=== PATIENT | male | born 1990 | race Caucasian/White ===

== ENCOUNTER → 2019-10-03 13:57 | Outpatient (CLI) | payer BC, SELFPAY ==
[2019-10-04 13:51] LABS: Covid-19 Nasal PCR Sendout Lex Not Detected
== END ==
PROVIDERS: PCP Emergency Medicine; Visit Provider Nurse Practitioner Family
DX: Z03.818 Encounter for observation for suspected exposure to other biological agents ruled out (principal)
CPT/HCPCS: U0004

== ENCOUNTER 2020-04-23 15:45 | Emergency (ER) | payer OTHER, SELFPAY ==
[2020-04-23 16:07] VITALS: BP 129/74; PULSE 113; RESP 14; TEMP 38.8; O2SAT 96; BMI 26.5
--- NOTE | 2020-04-23 16:15 | HMH.EDUTC ---
[facility] [place] Disposition Clinical Impression: Strep throat Disposition: Home, Self-Care Condition on Discharge: Good Instructions: Strep Throat (Alternative Therapy), Strep Throat, DI for Strep Throat Additional Instructions: *Monitor Temp, Over the counter Motrin or Tylenol as directed/as needed Tylenol every 4 hours and Motrin every 6 hours (as long as your family doctor has told you that you can take it) for fever or pain. and straight to ER if unable to lower temp less than 101.0 after medication given *Warm salt water gargles may help to soothe the throat *Throat Lozenges *Warm fluids like tea with honey may help to soothe the throat *Sleep elevated *Humidifier/Vaporizer *If you did not take Penicillin shot or was unable to, start taking antibiotic immediately and make sure that you take it for the FULL length of time although you should start to feel better in 24-48 hours *change toothbrush and toothpaste 24-48 hours after starting to take antibiotics so you do not reinfect yourself Monitor Temp. Tylenol and/or Ibuprofen as needed. ER if fever is no less than 101 despite alternating Tylenol and Ibuprofen * Encourage fluids, water, Gatorade, powerade, pedialyte if infant/toddler/or child *Cold fluids, popsicles and ice cream may feel good on his throat Follow up IMMEDIATELY for new or worsening symptoms or no Noticeable improvement over the next 48-72 hours. 911 for difficulty breathing or swallowing Prescriptions: Amoxicillin/Potassium Clav [Augmentin 875-125 Tablet] 1 tab PO Q12H 10 Days #20 tab Transmission Status: Received by [id number] Referrals: Huey Marroquin MD [Primary Care Provider] - Forms: Work/School Release Time of Disposition: 18:24 Medical Decision Making - Rashad Inquiry Pt receiving controlled substance: No Rashad was queried for this patient: No Vital Signs: 04/23/20 16:07 04/23/20 16:46 Temperature 101.9 F H 101 F H Temperature Source Oral Tympanic Pulse Rate 107 H Pulse Rate [Right] 113 H Respiratory Rate 14 16 Blood Pressure 122/76 Blood Pressure [Right Arm] 129/74 Blood Pressure Mean [Right Arm] 92 Blood Pressure Source [Right Arm] Automatic Cuff Blood Pressure Position [Right Arm] Sitting 02 Sat by Pulse Oximetry 96 Oxygen Delivery Method Room Air - Lab Data Lab results reviewed: Yes: I reviewed the patient's lab results. Orders (Tests/Meds): ED MEDICATIONS Discontinued Medications Generic Name Dose Route Start Last Admin Trade Name Digna PRN Reason Stop Dose Admin Ceftriaxone Sodium 1 gm 04/23/20 16:19 04/23/20 16:25 Ceftriaxone 1gm Vial IM 04/23/20 16:20 1 gm ONCE ONE Administration Protocol Ibuprofen 800 mg 04/23/20 16:37 04/23/20 16:37 Ibuprofen 400 Mg Tablet PO 04/23/20 16:38 800 mg ONCE ONE Administration Lidocaine HCl 0 ml 04/23/20 16:19 04/23/20 16:25 Lidocaine 1% 5ml Pf Vial IM 04/23/20 16:20 2 ml ONCE ONE Administration Methylprednisolone Sodium Succinate 125 mg 04/23/20 16:19 04/23/20 16:25 Methylprednisolone Sod Succ 125mg Vial IM 04/23/20 16:20 125 mg ONCE ONE Administration Medical Decision Narrative: Medication discussed with pharmacy and agreed, due to symptoms and no improvement on amoxicillin will give injection of Rochephin and change medication to Augmentin [facility] [place] HPI - General Stated complaint: sore throat, VELASCO, diarrhea Time Seen by Provider: 04/23/20 16:15 Mode of Arrival: Ambulatory Source of Information: Patient Limitations: No Limitations Description of Symptoms (Recalled from Triage Doc. by RN): PT HAS HAD A SEVERELY SORE THROAT AND FEVER ONGOING FOR FOUR DAYS. HE WAS TESTED FOR STREP AND COVID AT [facility] AND BOTH WERE NEGATIVE. PT IS HOARSE. PT CURRENTLY FEBRILE AT 101.9 HEENT Symptoms (Recalled from RN notes): Yes (SORE THROAT) Resp Symptoms (Recalled from RN notes): No Skin Symptoms (Recalled from RN notes): No MS Symptoms (Recalled from RN notes): No Functi
[2020-04-23 16:46] VITALS: BP 122/76; PULSE 107; RESP 16; TEMP 38.3
[2020-04-23 19:38] LABS: UTC Strep Screen (Rapid) Positive (Negative)
== END 2020-04-23 16:51 | disposition home or self-care (01) ==
PROVIDERS: Emergency Provider Nurse Practitioner; PCP Emergency Medicine
DX: J02.0 Streptococcal pharyngitis (principal); F17.290 Nicotine dependence, other tobacco product, uncomplicated
CPT/HCPCS: 87880; 96372; 99202; G0463

== ENCOUNTER 2021-06-19 10:24 | Emergency (ER) | payer OTHER, SELFPAY ==
[2021-06-19 10:53] VITALS: BP 115/57; PULSE 79; RESP 18; TEMP 37.2; O2SAT 98; BMI 27.8
[2021-06-19 11:00] LABS: UTC Influenza A Antigen Negative (Negative)
[2021-06-19 11:01] LABS: UTC Influenza B Antigen Negative (Negative)
--- NOTE | 2021-06-19 11:02 | HMH.EDUTC ---
[facility] [place] Disposition Clinical Impression: Viral syndrome Pharyngitis Qualifiers: Pharyngitis/tonsillitis etiology: unspecified etiology Qualified Code(s): J02.9 - Acute pharyngitis, unspecified Disposition: Home, Self-Care Condition on Discharge: Good Instructions: DI for Pharyngitis/Tonsillopharyngitis -- Adult Additional Instructions: Drink plenty of fluids. Take tylenol or ibuprofen for pain or fever. Take the medications as directed. Follow up with your regular doctor. GO TO THE ER FOR ANY WORSENING SYMPTOMS Prescriptions: Brompheniramine/Pseudoephed/Dm [Bromfed Dm Cough Syrup] 5 ml PO Q6HP PRN #240 ml PRN Reason: Cough Transmission Status: Received by [facility] Ibuprofen [Ibuprofen 800mg Tablet] 800 mg PO Q8HP PRN #30 tab PRN Reason: Moderate Pain Transmission Status: Received by [id number] Azithromycin [Z-You 250mg Tab*] 250 mg PO UD DOSE PK #6 tab Transmission Status: Received by [id number] Referrals: Provider,Referral, MD [Primary Care Provider] - Forms: Work/School Release Time of Disposition: 11:22 Medical Decision Making - Medical Records Medical records reviewed: No: I reviewed the patient's medical records. - Rashad Inquiry Pt receiving controlled substance: No Vital Signs: 06/19/21 10:53 06/19/21 11:25 Temperature 99.0 F 99 F Temperature Source Oral Pulse Rate 79 Pulse Rate [Left] 79 Respiratory Rate 18 18 Blood Pressure 115/57 L Blood Pressure [Right Arm] 115/57 L Blood Pressure Mean [Right Arm] 76 02 Sat by Pulse Oximetry 98 - Lab Data Lab results reviewed: Yes: I reviewed the patient's lab results. Lab Results 06/19/21 10:49: Group A Strep Rapid Negative 06/19/21 10:51: Influenza Type A Ag Negative, Influenza Type B Ag Negative 06/19/21 11:20: Chlamy pneumoniae PCR Not detected, Adenovirus (PCR) Not detected, B. pertussis DNA (PCR) Not detected, Coronavirus OC43 (PCR) Not detected, Coronavirus HKU1 (PCR) Not detected, Coronavirus 229E (PCR) Not detected, SARS-CoV-2 (PCR) Detected A, Coronavirus NL63 (PCR) Not detected, Human Metapneumovir PCR Not detected, Influenza A (H1) PCR Not detected, Influ A (H1N1/09) PCR Not detected, Influenza A (H3) PCR Not detected, Influenza Type A (PCR) Not detected, Influenza Type B (PCR) Not detected, M. pneumoniae (PCR) Not detected, Parainfluenza 1 (PCR) Not detected, Parainfluenza 2 (PCR) Not detected, Parainfluenza 3 (PCR) Not detected, Parainfluenza 4 (PCR) Not detected, RSV (PCR) Not detected, Entero/Rhino (PCR) Not detected Orders (Tests/Meds): ORDERS Category Date Time Status Strep Screen Confirmation Stat Micro 06/19/21 10:49 Received [facility] [place] HPI - General Stated complaint: sore throat, low fever Time Seen by Provider: 06/19/21 11:02 Mode of Arrival: Ambulatory Source of Information: Patient Limitations: No Limitations Description of Symptoms (Recalled from Triage Doc. by RN): pt c/o headache, sore throat, low grade fever, body aches. HEENT Symptoms (Recalled from RN notes): Yes (headache, sore throat,) Resp Symptoms (Recalled from RN notes): No Skin Symptoms (Recalled from RN notes): No MS Symptoms (Recalled from RN notes): Yes (body aches) Functional Status (Recalled from RN notes): wnl - History of Present Illness Provider Complaint: He states that for the past 2 days he has had a cough, chills, low grade fever. He denies any known sick contacts - Related Data Previous Rx's Medication Instructions Recorded Amoxicillin/Potassium Clav 1 tab PO Q12H 10 Days #20 tab 04/23/20 [Augmentin 875-125 Tablet] Azithromycin [Z-You 250mg Tab*] 250 mg PO UD DOSE PK #6 tab 06/19/21 Brompheniramine/Pseudoephed/Dm 5 ml PO Q6HP PRN #240 ml 06/19/21 [Bromfed Dm Cough Syrup] Ibuprofen [Ibuprofen 800mg 800 mg PO Q8HP PRN #30 tab 06/19/21 Tablet] Allergies Allergy/AdvReac Type Severity Reaction Status Date / Time No Known Allergies Allergy Verified 0
[2021-06-19 11:05] LABS: Strep Scrn Group A (Rapid) Negative (Negative)
[2021-06-19 11:25] VITALS: BP 115/57; PULSE 79; RESP 18; TEMP 37.2
[2021-06-19 11:29] LABS: Adenovirus,PCR Not Detected (NotDetected); Bordetella Pertussis Not Detected (NotDetected); Chlamydophila Pneumoniae, PCR Not Detected (NotDetected); Coronavirus 229E Not Detected (NotDetected); Coronavirus NL63 Not Detected (NotDetected); Coronavirus OC43 Not Detected (NotDetected); Coronovirus HKU1,PCR Not Detected (NotDetected); Human Metapneumovirus Not Detected (NotDetected); Influenza A, PCR Not Detected (NotDetected); Influenza AH1, 2009 Not Detected (NotDetected); Influenza AH1, PCR Not Detected (NotDetected); Influenza AH3,PCR Not Detected (NotDetected); Influenza B, PCR Not Detected (NotDetected); Mycoplasma Pneumoniae, PCR Not Detected (NotDetected); Parainfluenza 1, PCR Not Detected (NotDetected); Parainfluenza 2, PCR Not Detected (NotDetected); Parainfluenza 3, PCR Not Detected (NotDetected); Parainfluenza 4, PCR Not Detected (NotDetected); Respiratory Syncytial Virus Not Detected (NotDetected); Rhinovirus/Enterovirus Not Detected (NotDetected)
[2021-06-19 13:17] LABS: Coronavirus 19, PCR Detected (NotDetected)
== END 2021-06-19 11:37 | disposition home or self-care (01) ==
PROVIDERS: Emergency Provider Nurse Practitioner Family
DX: B34.9 Viral infection, unspecified (principal)
CPT/HCPCS: 87430; 87581; 87632; 87798; 87804; 99212; C9803; G0463; U0003; U0005

== ENCOUNTER 2022-08-19 15:34 | Emergency (ER) | payer BC, SELFPAY ==
[2022-08-19 15:45] VITALS: BP 133/81; PULSE 71; RESP 20; TEMP 36.8; O2SAT 98; BMI 29.1
--- NOTE | 2022-08-19 15:51 | EXP.UTC ---
Discharge Plan Disposition Patient Disposition: Home, Self-Care Condition: Good Prescriptions Prescriptions: New azithromycin [Zithromax Z-You] 250 mg tablet See Rx Instructions .ROUTE .COMPLEX 5 Days Qty: 6 0RF Rx Instructions: For 250 mg dose pack: take 500 mg today (day 1), then 250 mg for 4 days (days 2-5) methylprednisolone [Medrol (You)] 4 mg tablets,dose pack See Rx Instructions .Route .COMPLEX 6 Days Qty: 21 0RF Rx Instructions: taper pack; Referrals Follow up/Referrals: ProviderLorelei MD [Primary Care Provider] - See instructions Steve Palacios MD [Physician] - See instructions Nickolas Irene MD [Physician] - See instructions Abena Jones APRN [Nurse Practitioner] - See instructions Activity Restrictions/Add. Instructions Additional Instructions/Restrictions: *Monitor Temp, Over the counter Motrin or Tylenol as directed/as needed Tylenol every 4 hours and Motrin every 6 hours (as long as your family doctor has told you that you can take it) for fever or pain. and straight to ER if unable to lower temp less than 101.0 after medication given *Warm salt water gargles may help to soothe the throat *Throat Lozenges? *Warm fluids like tea with honey may help to soothe the throat? *Sleep elevated *Humidifier/Vaporizer *Flonase 2 sprays in each nostril daily but be aware that it may take 2-3 days before you notice improvement *Bromfed may cause drowsiness. Know how it effects you (your child) before driving, caring for small child, or sending your child to school. Not other antihistamines/allergy medications while taking bromfed Your throat swab was sent for culture. Those results are typically sent to your primary care. Be sure to follow up in 2-3 days with your family doctor/primary care physician if no improvement so they can review those result and treat if necessary. If you don?t have a primary care doctor, I recommend you get one but in the mean time, you will have to return to a walk in clinic Follow up IMMEDIATELY for new or worsening symptoms or no Noticeable improvement over the next 48-72 hours. 911 for difficulty breathing or swallowing Clinical Impressions Clinical Impression: Sinusitis Qualifiers: Sinusitis location: unspecified location Chronicity: unspecified Qualified Code(s): J32.9 - Chronic sinusitis, unspecified Instructions Patient Instructions: DI for Sinusitis, Sinusitis, Jaw Pain: It's Not Just Stress Discharge ED Provider: Jena Collins [facility] [place] General Stated complaint: Sore throat and jaw pain Mode of Arrival: Ambulatory Source of Information: Patient Limitations: No Limitations Time Seen by Provider: 08/19/22 15:51 Description of Symptoms (Recalled from Triage Doc. by RN): PATIENT C/O RIGHT THROAT AND JAW PAIN X 2 DAYS HEENT Symptoms (Recalled from RN notes): Yes Resp Symptoms (Recalled from RN notes): No Skin Symptoms (Recalled from RN notes): No MS Symptoms (Recalled from RN notes): No Functional Status (Recalled from RN notes): WNL History of Present Illness Provider Complaint: Patient states that he has been having pain in his right jaw area and pain on the right side of his throat when he swallows States that he has not been having any dental pain or anything and not hurt his jaw States that it has been going on now for 2 days and getting worse so he came in Related Data Previous Rx's Medication Instructions Recorded azithromycin 250 mg tablet See Rx Instructions PO .COMPLEX 5 08/19/22 (Zithromax Z-You) days #6 tabs methylprednisolone 4 mg tablets in See Rx Instructions .Route 08/19/22 a dose pack (Medrol (You)) .COMPLEX 6 days #21 tabs Allergies Allergy/AdvReac Type Severity Reaction Status Date / Time No Known Allergies Allergy Verified 06/19/21 10:56 Worker's Comp Is this a Worker's Comp case?: No [facility] Disclaimer: The information contained in this section may have been upd
[2022-08-19 15:57] LABS: UTC Strep Screen (Rapid) Negative (Negative)
[2022-08-19 16:14] VITALS: BP 133/81; PULSE 71; RESP 20; TEMP 36.8; O2SAT 98
== END 2022-08-19 16:16 | disposition home or self-care (01) ==
PROVIDERS: Emergency Provider Nurse Practitioner
DX: J01.90 Acute sinusitis, unspecified (principal); R68.84 Jaw pain
CPT/HCPCS: 87880; 99212; 99214; G0463

== ENCOUNTER 2023-05-15 13:48 | Emergency (ER) | payer BC, SELFPAY ==
--- NOTE | 2023-05-15 13:57 | XR_ITS ---
FINAL REPORT CLINICAL HISTORY: pain, twisted foot/ankle after stepping in a hole in the yard yesterday COMPARISON: None FINDINGS: LEFT ANKLE: Three views of the left ankle were obtained. There is no acute fracture or dislocation. The joint spaces and mortise are intact. There is no soft tissue abnormality. IMPRESSION: No acute bony abnormality. Reviewed, Interpreted and Dictated by Sudhir Michael III, MD Transcribed by Mallory Larsen Authenticated and [facility]
--- NOTE | 2023-05-15 13:57 | XR_ITS ---
FINAL REPORT CLINICAL HISTORY: pain, twisted foot/ankle after stepping in a hole in the yard yesterday COMPARISON: None FINDINGS: LEFT FOOT: 2 views of the left foot were obtained. There is no acute fracture or dislocation. The joint spaces are intact. There is no soft tissue abnormality. IMPRESSION: No acute bony abnormality. Reviewed, Interpreted and Dictated by Sudhir Michael III, MD Transcribed by Mallory Larsen Authenticated and [facility]
[2023-05-15 14:30] VITALS: BP 126/82; PULSE 83; RESP 18; TEMP 36.4; O2SAT 97; BMI 28.5
--- NOTE | 2023-05-15 14:35 | ED_ITS ---
Discharge Plan Disposition Patient Disposition: Home, Self-Care Condition: Good Prescriptions Prescriptions: New ibuprofen [IBU] 800 mg tablet 800 mg PO Q8HP PRN (Reason: Moderate Pain) Qty: 30 0RF Referrals Follow up/Referrals: Provider,Referral, MD [Primary Care Provider] - See instructions Nimco Mchugh DPM [Staff Physician] - See instructions Activity Restrictions/Add. Instructions Additional Instructions/Restrictions: Rest the extremity, apply ice for 15 minutes as tolerated three or four times per day, Wear the vik wrap for compression, Elevate the extremity as tolerated while you are resting. Take ibuprofen for pain. I sent in a prescription to your pharmacy. Follow up with Dr. Mchugh (podiatry). I put in a referral but you need to call her office and schedule an appointment. Follow up with your regular doctor. GO TO THE ER FOR ANY WORSENING SYMPTOMS Clinical Impressions Clinical Impression: Sprain of left ankle, Sprain of left foot Stand Alone Forms Stand Alone Forms: Work/School Release Instructions Patient Instructions: DI for Ankle Sprain, DI for Foot Sprain Discharge ED Provider: Henry Vaz [facility] General Stated complaint: AO 05/14/23 tripped,inj left ankle Time Seen by Provider: 05/15/23 14:35 History of Present Illness Provider Complaint: He states that he stepped in a hole in his yard yesterday a nd twisted his left ankle and foot. Since then he has had left ankle pain and swelling. He states that his pain is worse when he bears weight on the foot. He denies any other injury or complaints. Related Data Previous Rx's Medication Instructions Recorded ibuprofen 800 mg tablet (IBU) 800 mg PO Q8HP PRN Moderate Pain 05/15/23 #30 tabs Allergies Allergy/AdvReac Type Severity Reaction Status Date / Time No Known Allergies Allergy Verified 05/15/23 14:47 [facility] Disclaimer: The information contained in this section may have been updated after the patient was seen, as this information can be updated by other users. Social History (Updated 08/19/22 @ 16:11 by Jena Collins APRN) Smoking Status: Unknown if ever smoked alcohol intake: never current occupational status: employed Travel in the last 8 weeks: None ROS Obtained: Yes All systems reviewed & no additional complaints except as documented Constitutional Constitutional: Denies chills and Denies fever(s) Eyes Eyes: Denies eye discharge ENT Ears, Nose, Mouth, and Throat: Denies dizziness, Denies otalgia and Denies sore throat Cardiovascular Cardiovascular: Denies chest pain Respiratory Respiratory: Denies shortness of breath, Denies chest congestion, Denies cough, Denies stridor and Denies wheezing Gastrointestinal Gastrointestingal: Denies nausea or vomiting Musculoskeletal Musculoskeletal: Reports as per HPI Integumentary/Breasts Skin/Breast: Denies redness, Denies rash and Denies wounds Neurologic Neurologic: Denies dizziness and Denies paresthesias Allergic/Immunologic Allergic/Immunologic: Denies wheezing Physical Exam General General appearance: alert and in no apparent distress Head Head exam: atraumatic, normocephalic and normal inspection Eye Eye exam: Present normal appearance, PERRL and EOMI ENT ENT exam: Present normal exam, normal oropharynx, mucous membranes moist, TM's normal bilaterally and normal external ear exam Neck Neck exam: Present normal inspection, full ROM and trachea midline; Absent meningismus or lymphadenopathy Chest Chest inspection: Present normal inspection and symmetric chest wall rise; Absent tenderness Respiratory Respiratory exam: Present normal lung sounds bilaterally; Absent respiratory distress Cardiovascular Cardiovascular exam: Present regular rate and normal rhythm; Absent JVD Abdominal Exam Abdominal exam: Present soft and normal bowel sounds; Absent distention, tenderness or guarding Extremities Exam Extremities exam: Present normal capillary refill; Absent calf tenderness Expanded Lower Extremity Exam Left: Knee exam: Present normal inspection, full ROM and knee extension intact; Absent tenderness Lower leg exam: Present normal inspection, full ROM and Achilles tendon intact; Absent tenderness or Homans' sign Ankle exam: Present full ROM, tenderness and swelling; Absent abrasion, laceration, ecchymosis, deformity, crepitus, dislocation, erythema, tenderness over talofibular lig, anterior draw sign or other Foot/toe exam: Present full ROM, tenderness and swelling; Absent abrasion, laceration, ecchymosis, deformity, crepitus, dislocation, erythema, amputation, puncture wound, foreign body, calcaneal tenderness, tenderness at base of 5th me tatarsal, nail avulsion or subungual hematoma Neurovascular/Tendon exam: Present normal capillary refill, normal 2-point discrimination and normal fine/light touch; Absent pulse deficit, motor deficit, sensory deficit, tendon deficit, extremity cold to touch or pallor Gait: observed and normal Back Exam Back exam: Present normal inspection; Absent tenderness Neurological Exam Neurological exam: Present alert and oriented X3 Psychiatric Psychiatric exam: Present normal affect and normal mood Skin Skin exam: Present warm, dry, intact and normal color Lymphatic Lymphatic Findings: no adenopathy Medical Decision Making Medical Records Medical records reviewed: No I reviewed the patient's medical records. Rashad Inquiry Pt receiving controlled substance: No Orders (Tests/Meds): ORDERS Category Date Time Status Ankle XR - Left minimum 3 Views [XR ankle LT min 3V] Exams 05/15/23 13:57 Taken Stat XR foot LT min 3V Stat Exams 05/15/23 13:57 Taken Radiology Data #1: Image(s): Ankle Image Reviewed: Yes I reviewed the patient's radiology image and Yes I have reviewed radiologist's interpretation Preliminary Findings: No Fracture Seen #2: Image(s): Foot/Toes Image Reviewed: Yes I reviewed the patient's radiology image and Yes I have reviewed radiologist's interpretation Preliminary Findings: No Fracture Seen Procedures Risk/Benefits of Procedure(s) Were Explained: Yes Orthopedic Splinting/Casting Injury #1: Side: left Lower Extremity Injury Location: ankle and foot Lower Extremity Immobilizer: Vik wrap and applied by nurse/dr rosas Post Cast/Splinting Neuro Status: intact and no change Post Cast/Splinting Vasc Status: intact and no change
[2023-05-15 15:23] VITALS: BP 126/82; PULSE 83; RESP 18; TEMP 36.4; O2SAT 97
== END 2023-05-15 15:22 | disposition home or self-care (01) ==
PROVIDERS: Emergency Provider Nurse Practitioner Family
DX: S93.402A Sprain of unspecified ligament of left ankle, initial encounter (principal); S93.602A Unspecified sprain of left foot, initial encounter; W18.42XA Slipping, tripping and stumbling without falling due to stepping into hole or opening, initial encounter
CPT/HCPCS: 73610; 73630; 99212; 99214; G0463

== ENCOUNTER 2024-04-14 14:30 | Emergency (ER) | payer BC, SELFPAY ==
[2024-04-14 14:59] VITALS: BP 130/72; PULSE 111; RESP 18; TEMP 37.4; O2SAT 98; BMI 29.4
--- NOTE | 2024-04-14 15:02 | XR_ITS ---
PROCEDURE INFORMATION: Exam: XR Right Ankle Exam date and time: 04/14/2024 3:22 PM Age: 33 years old Clinical indication: Pain; Ankle; Right; Additional info: Ankle injury TECHNIQUE: Imaging protocol: Radiologic exam of the right ankle. Views: 3 or more views. COMPARISON: No relevant prior studies available. FINDINGS: Bones/joints: Small avulsion fracture which is favored to be from the lateral talar process, alternatively, could be from the tip of the distal fibula. No other acute fracture. No dislocation. Small plantar and posterior calcaneal enthesophytes. Soft tissues: Soft tissue edema of the lateral ankle. IMPRESSION: Small avulsion fracture which is favored to be from the lateral talar process. Consider MR to evaluate for anterior talofibular ligament injury. Soft tissue edema of the lateral ankle.
--- NOTE | 2024-04-14 15:29 | HMH.EDGENADL ---
Discharge Plan Disposition Patient Disposition: Home, Self-Care Condition: Good Prescriptions Prescriptions: No Action ibuprofen [IBU] 800 mg tablet 800 mg PO Q8HP PRN (Reason: Moderate Pain) Qty: 30 0RF Referrals Follow up/Referrals: Adelfo Martin DO [Staff Physician] - See instructions Provider,Referral, [Primary Care Provider] - See instructions Activity Restrictions/Add. Instructions Additional Instructions/Restrictions: You may have suffered a ligamentous injury which will need to be evaluated with an MRI. A referral to orthopedic surgery has been placed but she will need to call to schedule an appointment. Wear the walking boot for additional support. You can take it off to shower and when you not having to walk around a lot. Take Tylenol and ibuprofen every 6 hours as needed for pain. Clinical Impressions Clinical Impression: Avulsion fracture of ankle Qualifiers: Encounter type: initial encounter Fracture type: closed Laterality: right Qualified Code(s): S82.891A - Other fracture of right lower leg, initial encounter for closed fracture Instructions Patient Instructions: Ankle Fracture Print Language Print Language: Maltese Discharge ED Provider: Concepción Bucio General Adult HPI General Chief complaint: Extremity Injury, Lower Stated complaint: [id number]- pain and sweeling R ankle Time Seen by Provider: 04/14/24 15:10 Mode of Arrival: Ambulatory Source of Information: Patient Limitations: No Limitations Description of Symptoms (Recalled from ER Triage Doc. by RN): Pt presents for evaluation of right bruce pain. Pt states he was walking and rolled his ankle. History of Present Illness HPI narrative: Hu Aguayo is a 33 y/o male presenting with ankle pain. Pt states he rolled his ankle last night while walking on concrete. He did not fall. He continues to have pain and swelling to the right lateral ankle. Pt is able to ambulate. He denies numbness or tingling. Related Data Previous Rx's ?Medication ?Instructions ?Recorded ibuprofen 800 mg tablet (IBU) 800 mg PO Q8HP PRN Moderate Pain 05/15/23 #30 tabs Allergies Allergy/AdvReac Type Severity Reaction Status Date / Time No Known Allergies Allergy Verified 05/15/23 14:47 [facility] Disclaimer: The information contained in this section may have been updated after the patient was seen, as this information can be updated by other users. Social History (Updated 08/19/22 @ 16:11 by Jena Collins APRN) Smoking Status: Never smoker alcohol intake: never current occupational status: employed Travel in the last 8 weeks: None Have you lived/traveled outside US in past 30 days?: No Contact w/someone who lives/traveled outside US past 30 days?: No Exposure to someone with infectious disease in past 14 days?: No Do you have a fever (greater than 100.4 F or 38 C)?: No Have you tested positive for COVID-19: No Exposed to someone with COVID-19 in past 14 days?: No Do you have a sore throat?: No Do you have a cough?: No Do you have any weakness?: No Do you have any diarrhea?: No Are you experiencing any unusual bleeding?: No Do you have any muscle aches/pain?: No Do you have any abdominal pain?: No Are you experiencing loss of taste or smell?: No ROS Obtained: Yes All systems reviewed & no additional complaints except as documented Physical Exam General General appearance: alert and in no apparent distress Respiratory Respiratory exam: Present normal lung sounds bilaterally Cardiovascular Cardiovascular exam: Present regular rate and normal rhythm Abdominal Exam Abdominal exam: Present soft; Absent distention or tenderness Extremities Exam Extremities exam: Present full ROM, tenderness (Right lateral ankle tenderness and swelling. No tenderness to proximal tibia or fibula.) and other; Absent edema or calf tenderness Neurological Exam Neurological exam: Present alert and oriented X3 Skin Skin exam: Present warm and dry Medical Decision Making Medical Records Medical records reviewed: Yes I reviewed the patient's medical records. Screening: Per USPSTF and CDC recommendations, given the prevalence of disease in our region, it is our hospital?s policy to screen for HIV and viral Hepatitis for all patients aged 18 and over and those with ongoing risk factors. Rashad Inquiry Pt receiving controlled substance: No Rashad was queried for this patient: No Vital Signs: 04/14/24 14:59 04/14/24 16:15 04/14/24 17:20 Temperature 99.3 F Temperature Source Oral Pulse Rate 86 79 Pulse Rate [Right] 111 H Respiratory Rate 18 Blood Pressure 105/71 L 106/74 L Blood Pressure [Right Arm] 130/72 Blood Pressure Mean [Right Arm] 91 Blood Pressure Source Manual Cuff/ Auscultation Manual Cuff/ Auscultation Blood Pressure Source [Right Arm] Automatic Cuff Blood Pressure Position Sitting Sitting Blood Pressure Position [Right Arm] Sitting 02 Sat by Pulse Oximetry 98 100 96 Oxygen Delivery Method Room Air Room Air Room Air 04/14/24 18:04 Temperature 99.3 F Temperature Source Pulse Rate 68 Pulse Rate [Right] Respiratory Rate 18 Blood Pressure 123/81 Blood Pressure [Right Arm] Blood Pressure Mean [Right Arm] Blood Pressure Source Blood Pressure Source [Right Arm] Blood Pressure Position Blood Pressure Position [Right Arm] 02 Sat by Pulse Oximetry Oxygen Delivery Method Room Air Orders (Tests/Meds): ORDERS Category Date Time Status Ankle XR -Right minimum 3 Views [XR ankle RT min 3V] Exams 04/14/24 15:02 Completed Stat Medical Decision Narrative: In summary, pt is a 33 y/o male presenting with a right ankle injury. Differential diagnosis includes, but not limited to, ankle sprain, fracture, dislocation, among others. Pt has focal swelling to lateral ankle with tenderness of medial and lateral malleolus. XR of ankle ordered. Will defer XR of tib/fib as no tenderness of proximal aspect. XR personally reviewed by me and significant for avulsion fracture. Given avulsion and significant swelling to the lateral aspect of the ankle, will place in walking boot and referred to follow-up with orthopedic surgery. Patient informed of these findings and given symptomatic treatment as well as follow-up planning to evaluate for ligamentous injury. Patient has his own crutches. Patient agreement with this plan. Patient discharged in stable condition. Concepción Bucio MD Critical Care Critical Care Time Critical Care Time: No
[2024-04-14 16:15] VITALS: BP 105/71; PULSE 86; O2SAT 100
[2024-04-14 17:20] VITALS: BP 106/74; PULSE 79; O2SAT 96
--- NOTE | 2024-04-14 18:02 | PC.NURSE ---
walking boot put on pt right foot at this time
[2024-04-14 18:04] VITALS: BP 123/81; PULSE 68; RESP 18; TEMP 37.4; O2SAT 99
== END 2024-04-14 18:05 | disposition home or self-care (01) ==
PROVIDERS: Emergency Provider Student in an Organized Health Care Education/Training Program
DX: S82.891A Other fracture of right lower leg, initial encounter for closed fracture (principal); M25.571 Pain in right ankle and joints of right foot; X58.XXXA Exposure to other specified factors, initial encounter; Y93.89 Activity, other specified
CPT/HCPCS: 73610; 99283

== ENCOUNTER 2024-04-27 21:25 | Emergency (ER) | payer BC, SELFPAY ==
[2024-04-27 21:32] VITALS: BP 140/88; PULSE 81; RESP 20; TEMP 36.5; O2SAT 99; BMI 26.3
[2024-04-27 21:54] LABS: Basophils # 0.1 K/mm3 (0-0.2); Basophils % 0.5 % (0.1-2.0); Eosinophils # 0.8 K/mm3 (0.0-0.4); Eosinophils % 6.3 % (0.1-12.0); Hematocrit 51.2 % (42.0-52.0); Lymphocytes % 15.6 % (10-50); Mean Corpuscular HGB Conc 35.2 g/dL (31.8-35.4); Mean Corpuscular Hemoglobin 29.2 pg (27.0-31.2); Mean Corpuscular Volume 83.1 fl (80-94); Monocytes # 0.7 K/mm3 (0.1-1.0); Monocytes % 5.8 % (1.7-9.3); Neutrophils # 9.2 K/mm3 (1.8-7.8); Neutrophils % 71.6 % (37.0-80.0); Platelet Count 312 K/mm3 (142-424); Red Blood Count 6.16 M/mm3 (4.60-6.20); Red Cell Distribution Width 12.9 % (11.5-17.5); White Blood Count 12.8 K/mm3 (4.8-10.8)
[2024-04-27] MEDS: ACETAMINOPHEN 1,000MG/100ML VIAL 1000 MG IV (21:54)
[2024-04-27] MEDS: BELLADONNA ALKALOIDS 60 ML ML PO (21:54)
[2024-04-27] MEDS: 0.9 % SODIUM CHLORIDE 1000ML 1,000 ML 999 ML IV (21:54)
[2024-04-27] MEDS: ONDANSETRON 4MG/2ML VIAL 4 MG IV (21:55)
[2024-04-27] MEDS: SODIUM CHLORIDE 0.9% 10ML VIAL 10 ML IV (21:55)
[2024-04-27] MEDS: PANTOPRAZOLE 40MG VIAL 40 MG IV (21:55)
[2024-04-27 21:56] LABS: Albumin Level 5.3 g/dl (3.5-5.0); Chloride 104 mmol/L (98-107); Potassium 3.9 mmoL/L (3.5-5.1); Sodium 139 mmol/L (136-145)
[2024-04-27 21:58] LABS: Blood Urea Nitrogen 9 mg/dl (9-20); Creatinine Clearance Estimated 116 mL/min (50-200); Estimated Glomerular Filt Rate 77 ml/min (>60); GFR (African American) 93 ML/MIN (>60)
[2024-04-27 21:59] LABS: Alanine Aminotransferase 51 U/L (12-78); Albumin/Globulin Ratio 1.7 (1.1-1.8); Alkaline Phosphatase 96 U/L (38-126); Anion Gap 12.9 mEq/L (5-15); Aspartate Amino Transferase 47 U/L (17-59); Bilirubin,Total 1.2 mg/dl (0.2-1.3); Calcium 9.6 mg/dl (8.4-10.2); Carbon Dioxide 26 mmol/L (22.0-30.0); Globulin 3.1 g/dL (1.3-3.2); Glucose 112 mg/dl (74-100); Lipase 133 U/L (23-300); Total Protein,Serum 8.4 g/dl (6.3-8.2)
--- NOTE | 2024-04-27 22:35 | HMH.EDGENADL ---
Discharge Plan Disposition Patient Disposition: Home, Self-Care Prescriptions Prescriptions: No Action ibuprofen [IBU] 800 mg tablet 800 mg PO Q8HP PRN (Reason: Moderate Pain) Qty: 30 0RF Referrals Follow up/Referrals: Provider,Referral, [Primary Care Provider] - See instructions Activity Restrictions/Add. Instructions Additional Instructions/Restrictions: Please follow-up with your primary care provider. Please return to the emergency department if you develop any new or worsening symptoms or become concerned for your health. Clinical Impressions Clinical Impression: Enteritis Instructions Patient Instructions: DI for Acute Abdominal Pain Print Language Print Language: Albanian Discharge ED Provider: Kwasi Rodas General Adult HPI <Nik Agarwal MD - Last Filed: 04/27/24 23:22> General Chief complaint: Abdominal Pain Stated complaint: Stomach pain X1 week,nausea Time Seen by Provider: 04/27/24 21:35 Mode of Arrival: Ambulatory Source of Information: Patient Description of Symptoms (Recalled from ER Triage Doc. by RN): PT C/O UPPER ABD PAIN X1 WEEK, + N/D, DENEIS FEVER. History of Present Illness HPI narrative: Please note that above description of symptoms, in this electronic medical record under categorization of recalled from ER triage doctor by RN are reflective of an initial nursing assessment, however, is not reflective of my full history and physical exam that was personally taken and clarified. Consequentially, this preceding description of symptoms, which may include the patient's categorized chief complaint in the EMR, do not reflect my personal clinical impression, and the ultimate description of history of present illness and patient stated complaints should be deferred to this section of the note. Unless stated otherwise or congruent with this section of the note, additional signs, symptoms, or incongruence should be interpreted as inaccurate with my clinical impression. Related Data Previous Rx's ?Medication ?Instructions ?Recorded ibuprofen 800 mg tablet (IBU) 800 mg PO Q8HP PRN Moderate Pain 05/15/23 #30 tabs Allergies Allergy/AdvReac Type Severity Reaction Status Date / Time No Known Allergies Allergy Verified 04/18/24 10:36 PFSH <Nik Agarwal MD - Last Filed: 04/27/24 23:22> PFS Disclaimer: The information contained in this section may have been updated after the patient was seen, as this information can be updated by other users. Social History Smoking Status: Unknown if ever smoked alcohol intake: never current occupational status: employed Travel in the last 8 weeks: None Have you lived/traveled outside US in past 30 days?: No Contact w/someone who lives/traveled outside US past 30 days?: No Exposure to someone with infectious disease in past 14 days?: No Do you have a fever (greater than 100.4 F or 38 C)?: Yes Have you tested positive for COVID-19: No Exposed to someone with COVID-19 in past 14 days?: No Do you have a sore throat?: Yes Do you have a cough?: Yes Do you have any weakness?: Yes Do you have any diarrhea?: No Are you experiencing any unusual bleeding?: No Do you have any muscle aches/pain?: No Do you have any abdominal pain?: Yes Are you experiencing loss of taste or smell?: No <Nik Agarwal MD - Last Filed: 04/27/24 23:22> ROS Obtained: Yes All systems reviewed & no additional complaints except as documented Physical Exam <Nik Agarwal MD - Last Filed: 04/27/24 23:22> General General appearance: alert Head Head exam: atraumatic and normocephalic Eye Eye exam: Present normal appearance, PERRL and EOMI Neck Neck exam: Present normal inspection, full ROM and trachea midline Respiratory Respiratory exam: Absent respiratory distress, wheezes, stridor, accessory muscle use or prolonged expiratory phase Cardiovascular Cardiovascular exam: Present other (Pulses equal symmetric in upper and lower extremities) Abdominal Exam Abdominal exam: Present soft and tenderness; Absent distention, guarding, rebound, rigidity or pulsatile mass Extremities Exam Extremities exam: Absent edema Neurological Exam Neurological exam: Present alert, oriented X3 and CN II-XII intact; Absent motor sensory deficit Skin Skin exam: Present warm and dry; Absent diaphoresis or erythema Medical Decision Making <Nik Agarwal MD - Last Filed: 04/27/24 23:22> Medical Records Medical records reviewed: Yes I reviewed the patient's medical records. Screening: Per USPSTF and CDC recommendations, given the prevalence of disease in our region, it is our hospital?s policy to screen for HIV and viral Hepatitis for all patients aged 18 and over and those with ongoing risk factors. Rashad Inquiry Pt receiving controlled substance: No Rashad was queried for this patient: No Vital Signs: 04/27/24 21:32 04/28/24 00:18 Temperature 97.7 F 98 F Temperature Source Oral Pulse Rate 63 Pulse Rate [Apical] 81 Respiratory Rate 20 20 Blood Pressure 126/76 Blood Pressure [Right Arm] 140/88 Blood Pressure Mean [Right Arm] 105 02 Sat by Pulse Oximetry 99 Oxygen Delivery Method Room Air Room Air Lab Data Lab Results 04/27/24 21:35: WBC 12.8 H, RBC 6.16, Hgb 18.0, Hct 51.2, MCV 83.1, MCH 29.2, MCHC 35.2, RDW 12.9, Plt Count 312, MPV 11.0 H, Neut % (Auto) 71.6, Lymph % (Auto) 15.6, Casey % (Auto) 5.8, Eos % (Auto) 6.3, Baso % (Auto) 0.5, Neut # (Auto) 9.2 H, Lymph # (Auto) 2.0, Casey # (Auto) 0.7, Eos # (Auto) 0.8 H, Baso # (Auto) 0.1, Sodium 139, Potassium 3.9, Chloride 104, Carbon Dioxide 26, Anion Gap 12.9, BUN 9, Creatinine 1.10, Estimated Creat Clear 116, Estimated GFR 77, Est GFR ( Amer) 93, Glucose 112 H, Calcium 9.6, Total Bilirubin 1.2, AST 47, ALT 51, Alkaline Phosphatase 96, Total Protein 8.4 H, Albumin 5.3 H, Globulin 3.1, Albumin/Globulin Ratio 1.7, Lipase 133 04/27/24 21:46: VBG pH 7.34, VBG pCO2 37.1, VBG pO2 43.0 H, VBG HCO3 19.7 L, VBG Total CO2 20.8 L, VBG O2 Saturation 78.4 H, VBG Base Excess -6.0 L, VBG Lactic Acid 0.6 04/27/24 21:35 04/27/24 21:35 Orders (Tests/Meds): ED MEDICATIONS Discontinued Medications Generic Name Dose Route Start Last Admin Trade Name Freq PRN Reason Stop Dose Admin Acetaminophen 1,000 mg 04/27/24 21:46 04/27/24 21:54 Acetaminophen 1,000mg/100ml Vial IV 04/27/24 21:47 1,000 mg ONCE ONE Administration Belladonna Alkaloids 60 ml 04/27/24 21:46 04/27/24 21:54 Belladonna Alkaloids 60 Ml Ml PO 04/27/24 21:47 60 ml ONCE ONE Administration Sodium Chloride 1,000 mls @ 999 mls/hr 04/27/24 21:47 04/27/24 21:54 Sod Chlor 0.9% 1000ml Bag IV 04/27/24 22:47 999 mls/hr .Q1H1M ONE Administration Iopamidol 75 ml 04/27/24 23:26 04/27/24 23:33 Iopamidol-370 (76%);100ml Bottle IV 04/27/24 23:27 75 ml ONCE ONE Administration Ondansetron HCl 4 mg 04/27/24 21:46 04/27/24 21:55 Ondansetron 4mg/2ml Vial IV 04/27/24 21:47 4 mg ONCE ONE Administration Pantoprazole Sodium 40 mg 04/27/24 21:46 04/27/24 21:55 Pantoprazole 40mg Vial IV 04/27/24 21:47 40 mg ONCE ONE Administration Sodium Chloride 10 ml 04/27/24 21:46 04/27/24 21:55 Sodium Chloride 0.9% 10ml Vial IV 05/27/24 21:45 10 ml NEEDED PRN Administration dilute protonix Sodium Chloride 10 ml 04/27/24 23:26 04/27/24 23:33 Sodium Chloride 0.9% 10ml Syr (Rad Only) IV 04/27/24 23:27 10 ml ONCE ONE Administration ORDERS Category Date Time Status CT abdomen pelvis w con Stat Cat Scan 04/27/24 23:09 Completed POCUS Point of Care (ER Only) Stat Exams 04/27/24 21:46 Completed CBC w/Auto Diff [Complete Blood Count Auto Diff] Stat Lab 04/27/24 21:35 Completed CMP [Comprehensive Metabolic Panel] Stat Lab 04/27/24 21:35 Completed Lipase Stat Lab 04/27/24 21:35 Completed VBG [Venous Blood Gas] Stat RT 04/27/24 21:46 Completed Medical Decision Narrative: 33-year-old male presenting with 1 week of abdominal pain. Has a history of gastritis and peptic ulcer disease, but has been taking coating agent. This seemed to help until today when pain got moderate to severe and did not go away. Not associated with p.o. intake, feels nauseated, has not been vomiting. No fevers or chills, but he has had diarrhea that is nonbloody, not mucousy, but watery. This been going on for about his week as well. No abdominal surgeries. No medical problems and does not take any medications. History was obtained via conversation with patient and . On arrival, patient hemodynamically stable, alert, oriented x4, appropriate, GCS 15, moving all extremities spontaneously, pupils equal and reactive to light. Full physical exam performed and significant for uncomfortable appearing male no acute distress. Abdomen is soft, nondistended, tender in epigastrium. Jones sign negative, McBurney's point tenderness negative. No outward signs of abnormality. Patient nontachycardic, speaking full senses, normotensive. Differential includes gastritis, gastroenteritis, duodenitis, PUD, pancreatitis, H. pylori, enteritis, inflammatory bowel disease, food poisoning, cholecystitis, among others. Patient placed on continuous cardiac monitoring and continuous pulse ox with initial blood pressure 140/88, heart rate 81, saturation 99% on room air. Patient was given fluids, Zofran, Toradol, GI cocktail, Protonix for symptomatic management and correction of underlying abnormalities. Workup independently interpreted and significant for mild leukocytosis 12.8 with neutrophilia. VBG with normal pH, but mild metabolic acidosis likely secondary to bicarb loss and stool. Lactate negative. CO2 normal. Kidney function normal. Lipase negative. Bedside [id number] ultrasound performed, normal right upper quadrant findings. Prolonged discussion had with patient and , patient symptoms not significantly improved after interventions, shared decision making landed on CT scan being ordered. I feel this is likely gastroenteritis given bedside ultrasound findings also consistent with fluid-filled colon that appears to be hyperactive. Prior to scan, care handed off. Supervisor Laundry disclaimer Much of this encounter note is an electronic school commissioner spoken language to printed text. Electronic school commissioner of the spoken language may permit errors. Although I have reviewed the note, some errors may still exist. <Kwasi Rodas MD - Last Filed: 04/28/24 01:35> Vital Signs: 04/27/24 21:32 04/28/24 00:18 Temperature 97.7 F 98 F Temperature Source Oral Pulse Rate 63 Pulse Rate [Apical] 81 Respiratory Rate 20 20 Blood Pressure 126/76 Blood Pressure [Right Arm] 140/88 Blood Pressure Mean [Right Arm] 105 02 Sat by Pulse Oximetry 99 Oxygen Delivery Method Room Air Room Air Lab Data Lab Results 04/27/24 21:35: WBC 12.8 H, RBC 6.16, Hgb 18.0, Hct 51.2, MCV 83.1, MCH 29.2, MCHC 35.2, RDW 12.9, Plt Count 312, MPV 11.0 H, Neut % (Auto) 71.6, Lymph % (Auto) 15.6, Casey % (Auto) 5.8, Eos % (Auto) 6.3, Baso % (Auto) 0.5, Neut # (Auto) 9.2 H, Lymph # (Auto) 2.0, Casey # (Auto) 0.7, Eos # (Auto) 0.8 H, Baso # (Auto) 0.1, Sodium 139, Potassium 3.9, Chloride 104, Carbon Dioxide 26, Anion Gap 12.9, BUN 9, Creatinine 1.10, Estimated Creat Clear 116, Estimated GFR 77, Est GFR ( Amer) 93, Glucose 112 H, Calcium 9.6, Total Bilirubin 1.2, AST 47, ALT 51, Alkaline Phosphatase 96, Total Protein 8.4 H, Albumin 5.3 H, Globulin 3.1, Albumin/Globulin Ratio 1.7, Lipase 133 04/27/24 21:46: VBG pH 7.34, VBG pCO2 37.1, VBG pO2 43.0 H, VBG HCO3 19.7 L, VBG Total CO2 20.8 L, VBG O2 Saturation 78.4 H, VBG Base Excess -6.0 L, VBG Lactic Acid 0.6 Orders (Tests/Meds): ED MEDICATIONS Discontinued Medications Generic Name Dose Route Start Last Admin Trade Name Freq PRN Reason Stop Dose Admin Acetaminophen 1,000 mg 04/27/24 21:46 04/27/24 21:54 Acetaminophen 1,000mg/100ml Vial IV 04/27/24 21:47 1,000 mg ONCE ONE Administration Belladonna Alkaloids 60 ml 04/27/24 21:46 04/27/24 21:54 Belladonna Alkaloids 60 Ml Ml PO 04/27/24 21:47 60 ml ONCE ONE Administration Sodium Chloride 1,000 mls @ 999 mls/hr 04/27/24 21:47 04/27/24 21:54 Sod Chlor 0.9% 1000ml Bag IV 04/27/24 22:47 999 mls/hr .Q1H1M ONE Administration Iopamidol 75 ml 04/27/24 23:26 04/27/24 23:33 Iopamidol-370 (76%);100ml Bottle IV 04/27/24 23:27 75 ml ONCE ONE Administration Ondansetron HCl 4 mg 04/27/24 21:46 04/27/24 21:55 Ondansetron 4mg/2ml Vial IV 04/27/24 21:47 4 mg ONCE ONE Administration Pantoprazole Sodium 40 mg 04/27/24 21:46 04/27/24 21:55 Pantoprazole 40mg Vial IV 04/27/24 21:47 40 mg ONCE ONE Administration Sodium Chloride 10 ml 04/27/24 21:46 04/27/24 21:55 Sodium Chloride 0.9% 10ml Vial IV 05/27/24 21:45 10 ml NEEDED PRN Administration dilute protonix Sodium Chloride 10 ml 04/27/24 23:26 04/27/24 23:33 Sodium Chloride 0.9% 10ml Syr (Rad Only) IV 04/27/24 23:27 10 ml ONCE ONE Administration ORDERS Category Date Time Status CT abdomen pelvis w con Stat Cat Scan 04/27/24 23:09 Completed POCUS Point of Care (ER Only) Stat Exams 04/27/24 21:46 Completed CBC w/Auto Diff [Complete Blood Count Auto Diff] Stat Lab 04/27/24 21:35 Completed CMP [Comprehensive Metabolic Panel] Stat Lab 04/27/24 21:35 Completed Lipase Stat Lab 04/27/24 21:35 Completed VBG [Venous Blood Gas] Stat RT 04/27/24 21:46 Completed Medical Decision Narrative: 33-year-old male presenting with 1 week of abdominal pain. Has a history of gastritis and peptic ulcer disease, but has been taking coating agent. This seemed to help until today when pain got moderate to severe and did not go away. Not associated with p.o. intake, feels nauseated, has not been vomiting. No fevers or chills, but he has had diarrhea that is nonbloody, not mucousy, but watery. This been going on for about his week as well. No abdominal surgeries. No medical problems and does not take any medications. History was obtained via conversation with patient and . On arrival, patient hemodynamically stable, alert, oriented x4, appropriate, GCS 15, moving all extremities spontaneously, pupils equal and reactive to light. Full physical exam performed and significant for uncomfortable appearing male no acute distress. Abdomen is soft, nondistended, tender in epigastrium. Jones sign negative, McBurney's point tenderness negative. No outward signs of abnormality. Patient nontachycardic, speaking full senses, normotensive. Differential includes gastritis, gastroenteritis, duodenitis, PUD, pancreatitis, H. pylori, enteritis, inflammatory bowel disease, food poisoning, cholecystitis, among others. Patient placed on continuous cardiac monitoring and continuous pulse ox with initial blood pressure 140/88, heart rate 81, saturation 99% on room air. Patient was given fluids, Zofran, Toradol, GI cocktail, Protonix for symptomatic management and correction of underlying abnormalities. Workup independently interpreted and significant for mild leukocytosis 12.8 with neutrophilia. VBG with normal pH, but mild metabolic acidosis likely secondary to bicarb loss and stool. Lactate negative. CO2 normal. Kidney function normal. Lipase negative. Bedside [id number] ultrasound performed, normal right upper quadrant findings. Prolonged discussion had with patient and , patient symptoms not significantly improved after interventions, shared decision making landed on CT scan being ordered. I feel this is likely gastroenteritis given bedside ultrasound findings also consistent with fluid-filled colon that appears to be hyperactive. Prior to scan, care handed off. Supervisor Laundry disclaimer Much of this encounter note is an electronic school commissioner spoken language to printed text. Electronic school commissioner of the spoken language may permit errors. Although I have reviewed the note, some errors may still exist. Clark ANGLIN: I assumed care of the patient at the time of handoff from the prior provider. On reassessment patient is still in some pain. CT imaging independently interpreted by me and shows no evidence of perforation or obstruction. Does show some fluid-filled small bowel and large bowel consistent with diarrheal state and possible mild enteritis. Read as normal by radiology. Interactive discussion with outpatient regarding his presentation. Given duration of symptoms, I think a stool sample is indicated. He attempted to provide us with a sample but was unable to. He was discharged in stable condition with a outpatient order for stool PCR. return precautions given. Procedures <Nik Agarwal MD - Last Filed: 04/27/24 23:22> Limited Ultrasound Indication:: Limited RUQ ultrasound Indication: History jason pain Identified structures: -Gallbladder -Gallbladder wall -Common bile duct -Liver Findings: Sonographic Jones sign: Absent Gallstones: Absent Sludge: Absent Pericholecystic fluid: Absent Maximal GB wall thickness (mm) (normal is </= 3mm): Normal Common bile duct width (mm) (normal is </= 6mm): Normal Gallbladder width (cm) (normal is < 4cm): Normal Gallbladder length (cm) (normal is < 10cm): Normal Impression: Normal right upper quadrant findings Images were saved to permanent archive The study was technically adequate CPT 39097-42 This study was performed by me, and I personally interpreted all images/videos. Based on my clinical judgement, these images were adequate and did not necessitate further imaging. Critical Care <Nik Agarwal MD - Last Filed: 04/27/24 23:22> Critical Care Time Critical Care Time: No
[2024-04-27 23:07] LABS: Lactate Venous 0.6 mmol/L (0.4-2.0); VBG HCO3 19.7 mmol/L (23-30); VBG Oxygen Saturation 78.4 % (50-70); VBG PCO2 37.1 mmol/L (35-51); VBG PH 7.34 mmol/L (7.31-7.41); VBG Total CO2 20.8 mmol/L (23-27)
--- NOTE | 2024-04-27 23:09 | CT_ITS ---
PROCEDURE INFORMATION: Exam: CT Abdomen And Pelvis With Contrast Exam date and time: 04/27/2024 11:26 PM Age: 33 years old Clinical indication: Abdominal pain; Epigastric; Additional info: Epigastric pain intractble TECHNIQUE: Imaging protocol: Computed tomography of the abdomen and pelvis with contrast. Radiation optimization: All CT scans at this facility use at least one of these dose optimization techniques: automated exposure control; mA and/or kV adjustment per patient size (includes targeted exams where dose is matched to clinical indication); or iterative reconstruction. Contrast material: ISOVUE; Contrast volume: 75 ml; Contrast route: IV; COMPARISON: No relevant prior studies available. FINDINGS: Liver: Normal. No mass. Gallbladder and biliary ducts: Normal. No calcified stones. No ductal dilation. Pancreas: Normal. No ductal dilation. Spleen: Normal. No splenomegaly. Adrenal glands: Normal. No mass. Kidneys and ureters: Normal. No hydronephrosis. Stomach and bowel: Unremarkable. No obstruction. No mucosal thickening. Appendix: No evidence of appendicitis. Intraperitoneal space: Unremarkable. No free air. No significant fluid collection. Vasculature: Unremarkable. No abdominal aortic aneurysm. Lymph nodes: Unremarkable. No enlarged lymph nodes. Urinary bladder: Unremarkable as visualized. Reproductive: Unremarkable as visualized. Bones/joints: Unremarkable. No acute fracture. Soft tissues: Unremarkable. IMPRESSION: No acute findings.
[2024-04-27] MEDS: SODIUM CHLORIDE 0.9% 10ML SYR (RAD ONLY) 10 ML IV (23:33)
[2024-04-27] MEDS: IOPAMIDOL-370 (76%);100ML BOTTLE 75 ML IV (23:33)
[2024-04-28 00:18] VITALS: BP 126/76; PULSE 63; RESP 20; TEMP 36.6; O2SAT 99
== END 2024-04-28 00:22 | disposition home or self-care (01) ==
PROVIDERS: Emergency Medicine; Emergency Provider Emergency Medicine
DX: K52.9 Noninfective gastroenteritis and colitis, unspecified (principal); R10.10 Upper abdominal pain, unspecified; R11.0 Nausea
CPT/HCPCS: 74177; 80053; 82803; 83690; 85025; 96361; 96374; 96375; 99285; J0131; J2405; J7030; Q9967

== ENCOUNTER 2024-05-02 13:31 | Outpatient (CLI) | payer BC, SELFPAY ==
--- NOTE | 2024-05-02 13:34 | XR_ITS ---
FINAL REPORT CLINICAL HISTORY: right ankle fx f/u fracture 2 weeks ago COMPARISON: 04/14/2024 FINDINGS: Three views of the right ankle show a tiny fracture fragment along the lateral talus, less apparent from the previous exam. Degree of displacement from the talus is improved. No new abnormality identified. The ankle mortise is intact. Soft tissue swelling has resolved. IMPRESSION: Improved lateral talar fracture. Reviewed, Interpreted and Dictated by Camryn Ferreira MD Transcribed by Mallory Larsen Authenticated and [facility]
== END 2024-05-02 23:59 | disposition home or self-care (01) ==
LOC: RAD 13:32
PROVIDERS: Visit Provider Physician Assistant Surgical
DX: M25.571 Pain in right ankle and joints of right foot (principal); S82.891A Other fracture of right lower leg, initial encounter for closed fracture
CPT/HCPCS: 73610

== ENCOUNTER 2024-05-23 13:19 | Outpatient (CLI) | payer BC, SELFPAY ==
--- NOTE | 2024-05-23 13:26 | XR_ITS ---
FINAL REPORT CLINICAL HISTORY: Right ankle pain COMPARISON: 05/02/2024 FINDINGS: Three views of the right ankle show no evidence of acute displaced fracture or dislocation of the visualized bony architecture. The joint spaces appear normal. IMPRESSION: Unremarkable exam. Reviewed, Interpreted and Dictated by Camryn Ferreira MD Transcribed by Mallory Larsen Authenticated and [facility]
== END 2024-05-23 23:59 | disposition home or self-care (01) ==
LOC: RAD 13:20
PROVIDERS: PCP Physician Assistant Surgical; Visit Provider Physician Assistant Surgical
DX: M25.571 Pain in right ankle and joints of right foot (principal)
CPT/HCPCS: 73610